=== PATIENT | male | born 1990 | race Caucasian/White ===

== ENCOUNTER 2017-11-07 16:31 | Emergency (ER) | payer OTHER ==
[~2017-11-07] VITALS: Ht 167.6 cm; Wt 89.4 kg
[2017-11-07] MEDS ORDERED: MOTRIN800 MG PO (17:54)
[2017-11-07] MEDS ORDERED: ULTRAM50 MG PO (17:54)
[2017-11-07] MEDS ORDERED: BACTRIM,SEPT1 TABLET PO (17:54)
[2017-11-07 18:17] VITALS: BP 120/84
== END 2017-11-07 18:19 | disposition home or self-care (01) ==
LOC: EME 16:31
DX: S61.213A Laceration without foreign body of left middle finger without damage to nail, initial encounter (principal); W54.0XXA Bitten by dog, initial encounter; H54.61 Unqualified visual loss, right eye, normal vision left eye; F17.200 Nicotine dependence, unspecified, uncomplicated
CPT/HCPCS: 73140; 99281; 99284